=== PATIENT | female | born 1995 | race Caucasian/White ===

== ENCOUNTER → 2017-05-10 | Outpatient (CLI) | payer OTHER ==
--- NOTE | 2017-05-10 15:01 | ECHOCARDIOGRAM REPORT ---
*NOTICE TO RECEIVING DEMOCRAT AGENCY This information is strictly Confidential and protected under [place] law. [place] law prohibits you from making any further disclosure of this information unless further disclosure is expressly permitted by the written consent of the person to whom it pertains or is authorized by law. A general authorization for the release of medical or other information is not sufficient for this purpose. Hospital accepts no responsibility if the information is made available to any other person, INCLUDING THE PATIENT. Interpretation Summary * Name: ARACELI HICKEY Study Date: 05/10/2017 02:06 PM BP: 127/61 mmHg * Patient Location: [facility] HR: 57 * : 1995 (M/d/yyyy) Gender: Female Height: 66 in * Age: 22 yrs Ethnicity: CA Weight: 150 lb * Ordering Physician: Vic Webber MD * Performed By: Geovanna Gimenez RDCS * * Reason For Study: Murmur * BSA: 1.8 m2 * -- Conclusions -- * Left ventricular systolic function is normal. * Normal diastolic function * Right ventricular systolic pressure is normal. * Normal echocardiogram Procedure Details * A complete two-dimensional transthoracic echocardiogram was performed (2D, M-mode, Doppler and color flow Doppler). Left Ventricle * The left ventricle is normal in size. * There is normal left ventricular wall thickness. * Ejection Fraction = 60-65%. * Left ventricular systolic function is normal. * Normal diastolic function * The left ventricular wall motion is normal. Right Ventricle * The right ventricle is normal in size and function. * The right ventricular systolic function is normal as assessed by tricuspid annular plane systolic excursion (TAPSE) (normal >1.5 cm). Atria * The left atrial size is normal. * Right atrial size is normal. Mitral Valve * The mitral valve anatomy is normal. * Significant mitral regurgitation is absent. Tricuspid Valve * The tricuspid valve is not well visualized, but is grossly normal. * There is trace tricuspid regurgitation. * Right ventricular systolic pressure is normal. Aortic Valve * The aortic valve is normal in structure and function. * The aortic valve is not well visualized. * No hemodynamically significant valvular aortic stenosis. * There is no significant aortic regurgitation. Pulmonic Valve * The pulmonary valve is inadequately visualized, but the Doppler data is adequate for interpretation. * There is no pulmonic valvular stenosis. * Trace pulmonic valvular regurgitation. Great Vessels * The aortic root is normal size. Pericardium/Pleural * There is no pericardial effusion. Great Vessels * Normal inferior vena cava diameter and respiratory variation suggests normal central venous pressure. MMode 2D Measurements and Calculations IVSd 0.77 cm LVIDd 4.0 cm LVIDs 2.7 cm LVPWd 0.69 cm IVS/LVPW 1.1 FS 33.1 % EDV(Teich) 70.9 ml ESV(Teich) 26.8 ml EF(Teich) 62.3 % EDV(cubed) 65.1 ml ESV(cubed) 19.4 ml EF(cubed) 70.1 % LV mass(C)d 83.2 grams LV mass(C)dI 47.0 grams/m\S\2 SV(Teich) 44.2 ml SI(Teich) 25.0 ml/m\S\2 SV(cubed) 45.6 ml SI(cubed) 25.8 ml/m\S\2 Ao root diam 2.4 cm Ao root area 4.5 cm\S\2 ACS 1.9 cm LA dimension 2.4 cm asc Aorta Diam 2.0 cm LA/Ao 0.99 LVOT diam 1.8 cm LVOT area 2.6 cm\S\2 LVAd ap4 24.2 cm\S\2 LVLd ap4 7.5 cm EDV(MOD-sp4) 64.8 ml EDV(sp4-el) 66.2 ml LVAs ap4 14.6 cm\S\2 LVLs ap4 6.9 cm ESV(MOD-sp4) 26.3 ml ESV(sp4-el) 26.1 ml EF(MOD-sp4) 59.3 % EF(sp4-el) 60.6 % LVAd ap2 24.6 cm\S\2 LVLd ap2 7.8 cm EDV(MOD-sp2) 64.3 ml EDV(sp2-el) 65.9 ml LVAs ap2 13.2 cm\S\2 LVLs ap2 6.8 cm ESV(MOD-sp2) 22.2 ml ESV(sp2-el) 21.8 ml EF(MOD-sp2) 65.5 % EF(sp2-el) 66.9 % LVLd %diff 3.9 % EDV(MOD-bp) 66.1 ml LVLs %diff -1.77 % ESV(MOD-bp) 24.2 ml EF(MOD-bp) 63.3 % SV(MOD-sp4) 38.5 ml SI(MOD-sp4) 21.7 ml/m\S\2 SV(MOD-sp2) 42.1 ml SI(MOD-sp2) 23.8 ml/m\S\2 SV(MOD-bp) 41.9 ml SI(MOD-bp) 23.7 ml/m\S\2 SV(sp4-el) 40.1 ml SI(sp4-el) 22.7 ml/m\S\2 SV(sp2-el) 44.1 ml SI(sp2-el) 24.9 ml/m\S\2 Doppler Measurements and Calculations MV E max jose 94.4 cm/sec MV A max jose 52.3 cm/sec MV E/A 1.8 MV dec time 0.25 sec Ao V2 max 135.9 cm/sec Ao max PG 7.4 mmHg Ao max PG (full) 1.8 mmHg KAYLIN(V,A) 2.3 cm\S\2 KAYLIN(V,D) 2.3 cm\S\2 LV V1 max PG 5.6 mmHg LV V1 max 118.4 cm/sec PA V2 max 91.5 cm/sec PA max PG 3.3 mmHg PA acc slope 329.2 cm/sec\S\2 PA acc time 0.21 sec TR max jose 168.0 cm/sec PA pr(Accel) -16.83 mmHg
== END | disposition home or self-care (01) ==
LOC: C.CPL 13:29
PROVIDERS: ATTEND Family Medicine
DX: R01.1 Cardiac murmur, unspecified (principal)